=== PATIENT | male | born 1985 | race Caucasian/White ===

== ENCOUNTER 2017-11-07 09:04 | Emergency (ER) | payer OTHER ==
[~2017-11-07] VITALS: Ht 172.7 cm; Wt 61.7 kg
--- NOTE | 2017-11-07 09:32 | ED UPPER/LOWER EXTREMITY COMPL ---
History of Present Illness General Chief Complaint: Upper Extremity Injury Stated Complaint: LEFT ARM INJURY Source: patient Exam Limitations: no limitations Vital Signs & Intake/Output Vital Signs & Intake/Output Vital Signs Date Time Temp Pulse Resp B/P B/P Pulse O2 O2 Flow FiO2 Mean Ox Delivery Rate 11/07 1119 98.6 56 18 125/69 97 11/07 0918 98.3 101 19 137/77 99 Room Air Allergies Coded Allergies: MDX - Azithromycin (AZITHROMYCIN) (VOMITING DIARRHEA 04/12/13) MDX - Clarithromycin (From BIAXIN) (EWA 04/12/13) Triage Note: PT TO ED FOR L UPPER ARM PAIN S/P HYPEREXTENDING IT WHILE FALLING OVER A STAIR RAILING. MEDICATED WITH 400 MG MOTRIN IN TRIAGE, PT TOOK 200 MG AT HOME S[employer]IOR [employer]. PROVIDED WITH A SLING IN TRIAGE. Triage Nurses Notes Reviewed? yes Onset: Abrupt Duration: constant Timing: recent history Severity: severe Severity Numbers: 7 HPI: Patient is a 32-year-old male who presented to emergency in a yesterday evening while ambulating down steps he misstepped and fell and braced his fall with his left outstretched upper extremity to the hand railing resulting in acute onset of sharp stabbing left shoulder and humeral pain. Patient states that movement makes worse denies any wrist or hand pain. Denies any extremity paresthesia Denies any neck or back pain. Patient is right arm dominant. Patient has been taking ibuprofen with minimal relief of symptoms (Con Crowe) Past History Travel History Traveled to [place] past 21 day No Medical History Any Pertinent Medical History? none Neurological: NONE EENT: NONE Cardiovascular: NONE Respiratory: NONE Gastrointestinal: NONE Hepatic: NONE Renal: NONE Musculoskeletal: NONE Psychiatric: NONE Endocrine: NONE Blood Disorders: NONE Cancer(s): NONE Surgical History Surgical History: non-contributory Psychosocial History What is your primary language Marshallese Tobacco Use: Current Daily Use Daily Tobacco Use Amount/Type: => 5 Cigarettes daily ETOH Use: denies use Illicit Drug Use: benzodiazepines Family History Hx Contributory? No (Con Crowe) Review of Systems Review of Systems Constitutional: Reports: no symptoms. EENTM: Reports: no symptoms. Respiratory: Reports: no symptoms. Cardiovascular: Reports: no symptoms. Gastrointestinal/Abdominal: Reports: no symptoms. Genitourinary: Reports: no symptoms. Musculoskeletal: Reports: see HPI, muscle pain, muscle stiffness. Skin: Reports: no symptoms. Neurological/Psychological: Reports: no symptoms. Hematologic/Endocrine: Reports: no symptoms. Immunological: Reports: no symptoms. All Other Systems: Reviewed and Negative (Con Crowe) Physical Exam Physical Exam General Appearance: no apparent distress, comfortable Head: atraumatic Eyes: Bilateral: normal appearance. Ears, Nose, Throat: hearing grossly normal Neck: normal inspection, no midline tenderness Cardiovascular/Respiratory: no respiratory distress Peripheral Pulses: 2+ radial (L) Neurologic/Tendon: normal sensation, normal motor functions, normal tendon functions, responds to pain, no evidence tendon injury, no pulse deficit Skin: intact, normal color, warm/dry Comments: Left shoulder normal inspection lateral point tenderness noted decreased active range of motion noted no clavicular tenderness Left humerus denies point tenderness noted normal inspection Left elbow normal inspection decreased active range of motion noted with flexion nontender Left wrist and hands normal inspection nontender full active range of motion Left upper extremity dermatomes intact radial pulse +2 (Con Crowe) Progress Differential Diagnosis: arterial insufficiency, compartment syndrome, contusion, dislocation, DVT, fracture, gout, septic arthritis, sprain, tendon injury Plan of Care: Orders Procedure Date/time Status FingerStick- Glucose 11/07 1032 Active Initially was noticed me that patient was evaluated by nursing staff to have symptoms of somnolence and intoxication and which initially I was hesitant on providing patient with narcotics however x-rays do show concerns of left shoulder dislocation when patient returned from the x-ray he was very upset and walked out to the parking lot I strongly advised patient to return to the emergency room however he closed the door of the car, the father who states she is a physician is very concerned outpatient opiate dependency however he tells me this confidentially and advised me not to tell the patient, I had a long talk with father who advised him to try to convince the patient to return to the emergency room After patient returned from the parking lot and had a private conversation with him where he states he did 3 bags of heroin outside. Discussed my concerns with patient about his opiate dependency and use in which I was hesitant administering more opiates while in the emergency room, Patient was placed in a room was on a bed in which using countertraction movement after 1 attempt there was an audible clunking reduction PRODUCED, patient was placed with the left shoulder immobilizer pre-and post-neurovascular was intact x-rays currently pending Postreduction confirms proper alignment of the glenohumeral joint discussed disposition and plan with patient and father patient was given copies of imaging upon discharge patient looks well no apparent distress Patient declines opiate detoxification evaluation I discussed patient with Diagnostic Imaging: Viewed by Me: Radiology Read. Radiology Impression: acute abnormality, fracture Comments: PATIENT: JITENDRA PINZON PRESENT AGE: 32 PATIENT ACCOUNT NO: [id number] : 87 LOCATION: ER ORDERING PHYSICIAN: Con PAZ SERVICE DATE: 11/07/17 EXAM TYPE: RAD - XRY-SHOULDER COMPLETE-LEFT EXAMINATION: XR SHOULDER, LEFT CLINICAL INFORMATION: Left shoulder and upper arm pain after hyperextension. COMPARISON: None TECHNIQUE: AP external rotation, Grashey, scapular Y, and axillary views of the left shoulder. FINDINGS: There is a Hill-Sachs fracture deformity superior lateral head left shoulder. The fracture extends to the greater tuberosity without displacement. In addition there is anterior dislocation of humeral head in relation to glenoid. No other abnormality seen. The soft tissues are normal. IMPRESSION: Anterior dislocation left shoulder. In addition there is Hill-Sachs fracture deformity left humeral head. The fracture extends but not displacing the greater tuberosity. DICTATED BY: Salo Oakes MD DATE/TIME DICTATED:11/07/171016 DEPARTMENT STORE SALESPERSON:VAL DATE/TIME TRANSCRIBED:11/07/171016 PATIENT: JITENDRA PINZON PRESENT AGE: 32 PATIENT ACCOUNT NO: [id number] : 87 LOCATION: ER ORDERING PHYSICIAN: Con PAZ SERVICE DATE: 11/07/17 EXAM TYPE: RAD - XRY-SHOULDER COMPLETE-LEFT EXAMINATION: XR SHOULDER, LEFT CLINICAL INFORMATION: Status post reduction of anterior dislocation of the left shoulder. COMPARISON: Left shoulder radiographs done earlier today on 11/07/2017 (prereduction radiographs). TECHNIQUE: Two views of the left shoulder. FINDINGS: The glenohumeral alignment is physiologic consistent with interim reduction of anterior shoulder dislocation. Previously documented Hill-Sachs fracture involving the posterolateral aspect of the humeral head is reidentified. There is no osseous Bankart lesion identified. The soft tissues are unremarkable. IMPRESSION: The glenohumeral alignment is physiologic, consistent with interim reduction of anterior shoulder dislocation of the left shoulder. Hill-Sachs fracture is visualized involving posterolateral part of the humeral head without any osseous Bankart lesion. DICTATED BY: Bonita Hawkins MD (Cno Crowe) Departure Departure Disposition: HOME OR SELF CARE Condition: Stable Clinical Impression Primary Impression: Dislocation of left shoulder joint Secondary Impressions: Left humeral fracture Referrals: Sridhar LIRA,[place] (PCP/Family) Vicente Ahmadi MD Additional Instructions: As discussed begin icing the area directly 20 minutes every 2 hours, begin the prescription meloxicam for pain and inflammation, begin using the shoulder immobilizer AT ALL TIMES UNTIL YOU follow-up with orthopedic Dr. Ahmadi NEXT WEEK ON THURSDAY. If symptoms worsen return to emergency room Prescriptions waiting at [facility] Departure Forms: Customer Survey General Discharge Information (Con Crowe) PA/OIL HEATERMAN Co-Sign Statement Statement: ED Attending supervision documentation- [] I saw and evaluated the patient. I have also reviewed all the pertinent lab results and diagnostic results. I agree with the findings and the plan of care as documented in the PA's/OIL HEATERMAN's documentation. [x] I have reviewed the ED Record and agree with the PA's/OIL HEATERMAN's documentation. [] Additions or exceptions (if any) to the PAs/OIL HEATERMAN's note and plan are summarized below: [] (Franc Reardon DO) Procedures Joint Reduction Joint Reduction Site: shoulder (L) Reduction Attempts: 1 Pre-Procedure NV Exam: Yes Post-Procedure NV Exam: Yes Post Joint Reduction Film: joint reduced (Con Crowe)
--- NOTE | 2017-11-07 10:29 | RADIOLOGY REPORT ---
EXAMINATION: XR SHOULDER, LEFT CLINICAL INFORMATION: Left shoulder and upper arm pain after hyperextension. COMPARISON: None TECHNIQUE: AP external rotation, Grashey, scapular Y, and axillary views of the left shoulder. FINDINGS: There is a Hill-Sachs fracture deformity superior lateral head left shoulder. The fracture extends to the greater tuberosity without displacement. In addition there is anterior dislocation of humeral head in relation to glenoid. No other abnormality seen. The soft tissues are normal. IMPRESSION: Anterior dislocation left shoulder. In addition there is Hill-Sachs fracture deformity left humeral head. The fracture extends but not displacing the greater tuberosity.
[2017-11-07 11:19] VITALS: BP 125/69
--- NOTE | 2017-11-07 11:44 | RADIOLOGY REPORT ---
EXAMINATION: XR SHOULDER, LEFT CLINICAL INFORMATION: Status post reduction of anterior dislocation of the left shoulder. COMPARISON: Left shoulder radiographs done earlier today on 11/07/2017 (prereduction radiographs). TECHNIQUE: Two views of the left shoulder. FINDINGS: The glenohumeral alignment is physiologic consistent with interim reduction of anterior shoulder dislocation. Previously documented Hill-Sachs fracture involving the posterolateral aspect of the humeral head is reidentified. There is no osseous Bankart lesion identified. The soft tissues are unremarkable. IMPRESSION: The glenohumeral alignment is physiologic, consistent with interim reduction of anterior shoulder dislocation of the left shoulder. Hill-Sachs fracture is visualized involving posterolateral part of the humeral head without any osseous Bankart lesion.
== END 2017-11-07 12:05 ==
LOC: ERH 09:04
DX: S43.015A Anterior dislocation of left humerus, initial encounter (principal); S42.292A Other displaced fracture of upper end of left humerus, initial encounter for closed fracture; W10.9XXA Fall (on) (from) unspecified stairs and steps, initial encounter; Y93.01 Activity, walking, marching and hiking; Y92.9 Unspecified place or not applicable
CPT/HCPCS: 73030-LT